=== PATIENT | male | born 1965 | race Caucasian/White ===

== ENCOUNTER 2021-02-10 08:25 | Inpatient (IN) ==
--- NOTE | 2021-01-05 12:59 | PAT Medication Instructions ---
Medication Instructions Date of Service January 05, 2021 Home Medications aspirin 81 mg tablet,delayed release 81 mg PO QAM atorvastatin 40 mg tablet 40 mg PO QAM metformin 500 mg tablet 500 mg PO BID multivitamin 1 tab PO QAM DO NOT take the morning of surgery metformin 500 mg tablet 500 mg PO BID multivitamin 1 tab PO QAM Take morning of surgery With a small sip of water, OTHERWISE NOTHING TO EAT OR DRINK AFTER MIDNIGHT: aspirin 81 mg tablet,delayed release 81 mg PO QAM (unless surgeon directs otherwise) atorvastatin 40 mg tablet 40 mg PO QAM Take evening before surgery metformin 500 mg tablet 500 mg PO BID Other Notes If you have any questions please call us at [phone] or [phone] or [phone] or [phone]
--- NOTE | 2021-01-07 10:58 | Anesthesiology Consultation ---
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 No known Covid infection in the past 90 days. Patient is vaccinated for Covid. No known Covid positive contacts or Covid related symptoms. Preop Covid testing scheduled 01/19/21= will await results. Educated on importance of self quarantining, social distancing and wearing mask in public both for the patient after Covid testing done Teaching & Discussion Pre-Anesthesia Teaching/Discussion Notes: Instructed NPO after midnight before surgery,except medications with 15 cc of water. Medication instructions provided according to the PAT guidelines. History Surgery Operation Date: 01/21/21 09:35 Proposed Procedures p L3-L5 Decompression, L4-L5 Fusion, Spinal Cord Monitoring - Puneet Briggs DO Height/Weight Height: 6 ft 2 in Weight: 115.2 kg Allergies Allergy/AdvReac Type Severity Reaction Status Date / Time bee venom protein (honey bee) Allergy Hives Verified 01/04/21 10:50 Medications Home Medications Medication Instructions Recorded Confirmed Last Taken aspirin 81 mg tablet,delayed 81 mg PO QAM 01/04/21 01/04/21 Unknown release atorvastatin 40 mg tablet 40 mg PO QAM 01/04/21 01/04/21 Unknown metformin 500 mg tablet 500 mg PO BID 01/04/21 01/04/21 Unknown multivitamin 1 tab PO QAM 01/04/21 01/04/21 Unknown Past Medical History Medical History DM type 2 (diabetes mellitus, type 2) NIDDM Glucose controlled per patient - usually 140s fasting glucose 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; s/p surgery + radiation No dysphagia History of TIA (transient ischemic attack) 05/2020 - no residual effects Hyperlipemia Very mild - on statin secondary to TIA Osteoarthritis Sleep apnea Unable to tolerate CPAP Has lost significant amount of weight since initial sleep study Exercise / Class Metabolic Activity II 4-5 Yardwork/Stairs/Walk up hill (one flight of stairs - no chest pain or SOB ) Past Family History Family History Other No family history of adverse response to anesthesia Past Surgical History Surgical History History of cancer surgery parotid cancer History of carpal tunnel surgery of left wrist History of carpal tunnel surgery of right wrist History of colonoscopy History of tonsillectomy History of transesophageal echocardiography (BOO) Past Anesthesia History No Hx of Anesthesia Complications and No Family Hx of Anesthesia Complications History of PONV No Hx of PONV and No Hx of Motion Sickness Social History Smoking Status: Never smoker Do You Dip or Chew Tobacco: No Hx Alcohol Use: Yes Alcohol type: beer alcohol intake frequency: a few times a month Hx Substance Use: No substance use type: does not use Review of Systems Patient denies chest pain, shortness of breath, dyspnea on exertion, reflux, cough, wheezing, palpitations. No hx of seizures, [place]. No hx of blood clots or blood transfusions Physical Exam Vital Signs VITALS BP 101/67 P 81 TEMP 98.7 SP02 98% RESP 16 Constitutional no acute distress ENMT Mouth: no TMJ clicking Thyromental Distance: > or= 3.5 Finger Breadths (4.0) Mallampati Class: III Front top teeth capped Permanent implant right side Molars capped Neck neck extension not limited Respiratory normal respiratory effort; no respiratory distress Auscultation: lungs clear to auscultation bilaterally; no wheezes Cardiovascular Rate/Rhythm: regular rate and regular rhythm Heart Sounds: no murmur Vessels: no carotid bruit Musculoskeletal Spine: no pain with cervical ROM Extremities: extremities normal to inspection Psychiatric Orientation: alert Lab Results Anesthesia Preop Results Results Anesthesia Widget: WBC 9.46 K/uL (4.8-10.8) 01/07/21 Hgb 13.7 g/dL (14.0-18.0) L 01/07/21 Hct 39.8 % (42-52) L 01/07/21 Plt 341 K/uL (130-400) 01/07/21 Na 136 mmol/L (136-145) 01/07/21 K 4.1 mmol/L (3.5-5.1) 01/07/21 Cl 105 mmol/L (98-107) 01/07/21 CO2 29 mmol/L (21-32) 01/07/21 BUN 11 mg/dl (7-18) 01/07/21 Creat 0.72 mg/dl (0.6-1.4) 01/07/21 Glucose Level 194 mg/dl (70-99) H 01/07/21 PT 10.8 Seconds (9.0-12.0) 01/07/21 PTT 26.4 Seconds (21.0-31.0) 01/07/21 INR 1.1 (0.9-1.1) 01/07/21 HA1c 7.6 % (4.5-5.6) H 01/07/21 Urine Color Dark Yellow 01/07/21 Urine Appearance Clear (Clear) 01/07/21 Urine pH 6.5 (4.5-7.5) 01/07/21 Urine Specific [place] 1.030 (1.000-1.030) 01/07/21 Urine Protein Negative (Negative) 01/07/21 Urine Glucose (UA) 3+ (Negative) H 01/07/21 Urine Ketones Trace (Negative) H 01/07/21 Urine Blood Negative (Negative) 01/07/21 Urine Nitrite Negative (Negative) 01/07/21 Urine Bilirubin Negative (Negative) 01/07/21 Urine Urobilinogen Negative (Negative) 01/07/21 Urine Leukocyte Esterase Negative (Negative) 01/07/21 Blood Type O Positive 01/07/21 Antibody Screen NEGATIVE 01/07/21 Testing Electrocardiogram Date: 01/07/21 Findings: + NSR @ (74bpm) Left axis deviation Chest X-Ray Date: 01/07/21 Findings: + NAD Echocardiogram Date: 07/14/20 EF: 50-54% LV Function: normal RWMA: + none Other Findings: + atrial enlargement (Mild left atrial enlargement.) BOO No right to left intra-atrial shunt by saline contrast injection. Aortic atherosclerosis is minimal. Mild MR. Mild TR. Other Testing CTA of neck 05/15/20= No stenosis or occlusion.
[~2021-02-10 08:25] MED LIST: ACETAMINOPHEN 500 MG TAB PO SCH; CeleBREX 200 MG CAP PO SCH; GABAPENTIN 600 MG DOSE PO SCH; LR 15ML/HR IV SCH; ceFAZolin 2000MG 2,000 MG/15 ML SYR IV SCH
[2021-02-10] MEDS ORDERED: HYDROmorphone INJ 2 MG/ML SYR/VIAL ONE (09:17)
[2021-02-10] MEDS ORDERED: MIDAZOLAM HCL 1 MG/ML 2ML VIAL ONE (09:17)
[2021-02-10] MEDS ORDERED: HYDROmorphone INJ 2 MG/ML SYR/VIAL IV PRN (09:38)
[2021-02-10] MEDS ORDERED: ONDANSETRON INJ 2 MG/ML 2 ML VIAL IV PRN ×2 (09:38→13:45)
[2021-02-10] MEDS ORDERED: fentaNYL citrate 100 MCG/2 ML VIAL IV PRN (09:38)
[2021-02-10] MEDS ORDERED: ePHEDrine sulfate 50 MG/ML AMP IV PRN (09:38)
[2021-02-10] MEDS ORDERED: ATROPINE SULFATE 0.1 MG/ML 10ML SYR IV PRN (09:38)
[2021-02-10] MEDS ORDERED: SUGAMMADEX SODIUM 200 MG/2 ML VIAL IV ONE (09:47)
--- NOTE | 2021-02-10 10:05 | History & Physical Bridge Note ---
Date of Service February 10, 2021 History & Physical Bridge Note I have examined the patient, reviewed the History & Physical and in the interval since the performance of the History & Physical I have noted the following changes of clinical significance: no changes noted
--- NOTE | 2021-02-10 10:07 | History & Physical Report ---
Date of Service February 10, 2021 Assessment & Plan (1) Neurogenic claudication due to lumbar spinal stenosis: Plan: L3-L5 decompression, L4-L5 fusion History of Present Illness Chief Complaint: Back and leg pain Primary Care Provider: Sveta Vu PA-C This is a 55-year-old male presents with chronic persistent back and leg pain. Failing since course of nonoperative care is here for surgical invention. Allergies Allergy/AdvReac Type Severity Reaction Status Date / Time bee venom protein (honey bee) Allergy Hives Verified 02/10/21 09:09 Home Medications Medication Instructions Recorded Confirmed Type aspirin 81 mg tablet,delayed 81 mg PO QAM 01/04/21 02/10/21 History release atorvastatin 40 mg tablet 40 mg PO QAM 01/04/21 02/10/21 History metformin 500 mg tablet 500 mg PO BID 01/04/21 02/10/21 History multivitamin 1 tab PO QAM 01/04/21 02/10/21 History Past Med/Surg History Medical History DM type 2 (diabetes mellitus, type 2) NIDDM Glucose controlled per patient - usually 140s fasting glucose 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; s/p surgery + radiation No dysphagia History of TIA (transient ischemic attack) 05/2020 - no residual effects Hyperlipemia Very mild - on statin secondary to TIA Osteoarthritis Sleep apnea Unable to tolerate CPAP Has lost significant amount of weight since initial sleep study Surgical History History of cancer surgery parotid cancer History of carpal tunnel surgery of left wrist History of carpal tunnel surgery of right wrist History of colonoscopy History of tonsillectomy History of transesophageal echocardiography (BOO) Family History Other No family history of adverse response to anesthesia Social History Smoking Status: Never smoker Second Hand Exposure: No; Do You Dip or Chew Tobacco: No; Hx Alcohol Use: Yes Alcohol type: beer Hx Substance Use: No Preferred Language: Kyrgyz Communication Ability: Effective 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
[2021-02-10] MEDS ORDERED: EPINEPHrine INJ 1 MG/ML AMP ONE (10:21)
[2021-02-10] MEDS ORDERED: BUPIVACAINE 0.5 % 5 MG/1 ML MPF 30ML VIAL ONE (10:22)
[2021-02-10] MEDS ORDERED: LIDOCAINE 2% 2 ML VIAL/AMP(20MG/ML) INFIL ONE (11:03)
[2021-02-10] MEDS ORDERED: PROPOFOL IV EMULSION 10 MG/ML 20 ML VIAL IV ONE (11:03)
[2021-02-10] MEDS ORDERED: ONDANSETRON INJ 2 MG/ML 2 ML VIAL ONE (11:03)
[2021-02-10] MEDS ORDERED: DEXAMETHASONE SOD INJ 4 MG/ML VIAL ONE (11:03)
[2021-02-10] MEDS ORDERED: ROCURONIUM BROMIDE 10 MG/ML 5 ML VIAL IV ONE ×2 (11:03→11:07)
[2021-02-10] MEDS ORDERED: FLOSEAL HEMOSTATIC MATRIX 10ML TOP ONE (12:09)
--- NOTE | 2021-02-10 12:29 | Operative Report ---
Post Operative Report Pre & Post Diagnosis Operation Date: 01/21/21 09:35 <No data on this case meets the specified criteria> Operation Date: 02/10/21 10:05 Pre-Op Diagnosis: Intervertebral Disc Disorders with Radiculopathy Post-Op Diagnosis: Intervertebral Disc Disorders with Radiculopathy I identified the patient and participated in the time-out.: Yes Procedure Operation Date: 01/21/21 09:35 <No data on this case meets the specified criteria> Operation Date: 02/10/21 10:05 Actual Procedures #1 lumbar decompression with bilateral medial facetectomies and foraminotomies L3-4 and L4-L5 per #2 posterior spinal fusion L4-5 #3 placed posterior instrumentation L4-5 per #4 interbody fusion L4-5. #5 placement peek cage 14 x 26 mm at L4-5 #6 placement locally harvested morselized autograft in the posterior gutters. #7 placement of I factor combined with vitoss in the interbody space and posterior lateral gutters. Surgeon Puneet Briggs, Clipper Machine Operator Yi Suero Estimated Blood Loss 250 Findings Consistent with Post-Op Diagnosis Specimens None Indications This is a 55-year-old male who presents to the emergent diagnosis after failing course of nonoperative care is here for the above-mentioned procedure. Description of Procedure Patient was met with identified informed consent obtained. Patient was then taken to the operative suite underwent ablation placed in a prone position the [facility] top Coy frame. All bony prominences well-padded eyes inspected to ensure no external pressure placed upon the bed at this point the lumbar spine was prepped and draped in a sterile fashion. Sharp dissection with the assistance of Bovie cautery was performed down to and exposing the lamina and transverse processes of L4-L5 bilaterally. From a caudal cephalad fashion complete laminectomy of L4 partial laminectomy of L3 was performed including bilateral medial facetectomies and foraminotomies addressing all spinal stenosis. Pedicle screws were then placed in L4 and L5 bilaterally with assistance of fluoroscopy and the process remington placed. By way of a transforaminal portion right complete discectomy of L for L5 was performed endplates curetted to subcortical bleeding bone and a 14 x 26 mm peek cage filled with I factor tapped in position. The rods were then locked in final position bilaterally. The transverse processes of L4 and L5 burred to subcortical bleeding bone. I factor combined with vitoss and locally harvested morselized autograft was placed in the posterior gutters. 15 round FERNANDO drain inserted. The incision was then closed with 1 Vicryl fascia 2-0 Vicryl subcutaneously and 4 Monocryl for final skin closure. Steri-Strip sterile dressings placed. Patient will continue PACU stable condition. Please note spinal cord monitoring visualized at the procedure no changes noted. Lastly Yi Suero was present at the surgeon for the patient positioning complex portions of the procedure. I attest to the content of the Intraoperative Record and any orders documented therein. Any exceptions are noted below.
--- NOTE | 2021-02-10 13:36 | Anesthesiology Progress Note ---
Date of Service February 10, 2021 Anesthesia Post Procedure Vital Signs Vital Signs: Temp Pulse Pulse Resp BP Pulse Ox 02/10/21 13:30 72 14 101/65 97 02/10/21 13:15 36.3 C L 75 15 105/69 92 02/10/21 13:05 75 12 110/67 94 02/10/21 12:55 68 12 104/69 99 02/10/21 12:45 71 12 100/66 99 02/10/21 12:35 36.2 C L 73 16 94/63 L 96 02/10/21 09:00 36.8 C 63 20 123/77 97 Transfer of Care Handoff Completed per policy Notes Mental Status: alert / awake / arousable and participated in evaluation Patient Amnestic to Procedure: Yes Nausea / Vomiting: adequately controlled Pain: adequately controlled Airway Patency, RR, SpO2: stable & adequate BP & HR: stable & adequate Hydration State: stable & adequate Anesthetic Complications: no major complications apparent and Pt Satisfied with anesthetic care
--- NOTE | 2021-02-10 13:40 | Fluoroscopy Report ---
FL lumbar spine 2-3V CLINICAL HISTORY: L3-L5 DECOMP, L4-L5 FUSION COMPARISON STUDY: None. FLUOROSCOPY TIME: 20 seconds.. FINDINGS: 2 fluoroscopic spot images of the lower lumbar spine demonstrate posterior decompression an d fusion at L4-5 with pedicle screws, rods, and a disc spacer. The hardware appears intact. IMPRESSION: Fluoroscopy provided for L4-5 posterior decompression and fusion ACT 112: Negative or not required by law. Electronically signed by: Sesar Sierra M.D. 02/10/2021 1:39 PM
[2021-02-10] MEDS ORDERED: DO NOT ADMINISTER PNEUMOCOCCAL VACCINE PRN (13:45)
[2021-02-10] MEDS ORDERED: ACETAMINOPHEN 500 MG TAB PO PRN (13:45)
[2021-02-10] MEDS ORDERED: ACETAMINOPHEN 1,000 MG/100 ML VIAL IV PRN (13:45)
[2021-02-10] MEDS ORDERED: PROMETHAZINE HCL 12.5 MG in SODIUM CHLORIDE 0.9% 50 ML IV PRN (13:45)
[2021-02-10] MEDS ORDERED: METOCLOPRAMIDE HCL INJ 5 MG/ML 2 ML VIAL IV PRN (13:45)
[2021-02-10] MEDS ORDERED: NALOXONE HCL 0.4 MG/1 ML VIAL/CARP IV PRN (13:45)
[2021-02-10] MEDS ORDERED: traMADol HCL 50 MG TABLET PO PRN (13:45)
[2021-02-10] MEDS ORDERED: FAMOTIDINE 20 MG TAB PO PRN (13:45)
[2021-02-10] MEDS ORDERED: diphenhydrAMINE Capsule 25 MG CAP PO PRN (13:45)
[2021-02-10] MEDS ORDERED: LORazepam 0.5 MG/1 ML VIAL IV PRN (13:45)
[2021-02-10] MEDS ORDERED: bisacodyL 10 MG SUPP PR PRN (13:45)
[2021-02-10] MEDS ORDERED: LORazepam 0.5 MG TAB PO PRN (13:45)
[2021-02-10] MEDS ORDERED: ALUMINUM/MAGNESIUM SUSP 30 ML UDC PO PRN (13:45)
[2021-02-10] MEDS ORDERED: SOD PHOSPHATE/SOD BIPHOSPHATE ENEMA 132 ML BTL PR PRN (13:45)
[2021-02-10] MEDS ORDERED: HYDROmorphone INJ 1 MG/ML SYRINGE IV PRN (13:45)
[2021-02-10] MEDS ORDERED: oxyCODONE HCL IR 5 MG TAB (IMMEDIATE RELEASE) PO PRN (13:45)
[2021-02-10] MEDS ORDERED: HYDROmorphone INJ 0.5 MG/0.5 ML SYR IV PRN (13:45)
[2021-02-10] MEDS ORDERED: DO NOT ADMINISTER FLU VACCINE PRN (13:45)
[2021-02-10] MEDS ORDERED: hydrOXYzine HCl 25 MG TAB PO PRN (13:45)
[2021-02-10] MEDS ORDERED: MAGNESIUM HYDROXIDE SUSP 30 ML UDC PO PRN (13:45)
[2021-02-10] MEDS ORDERED: ONDANSETRON 4 MG OD TAB PO PRN (13:45)
[2021-02-10] MEDS: SODIUM CHLORIDE 0.9% 1000ML 1,000 ML IV SCH ×2 (14:12→20:46)
--- NOTE | 2021-02-10 14:26 | Consultation ---
Date of Consultation February 10, 2021 Assessment & Plan (1) S/P spinal surgery: Post op day# 0 S/P L3-L5 decompression and fusion by Dr Briggs EBL#250ml -pain management per ortho -wound management per ortho -PT/OT as appropriate -DVT prophylaxis per ortho -incentive spirometry -monitor H&H for acute blood loss anemia; pre-op Hgb: 13.7 (2) DM type 2 (diabetes mellitus, type 2): A1c: 7.6 on 01/07/2021 -Hold Metformin -Basal, bolus insulin per protocol (3) History of TIA (transient ischemic attack): -Continue aspirin, atorvastatin (4) Sleep apnea: -Intolerant to CPAP DVT Prophylaxis -SCDs per ortho Disposition per primary service Follows with Sveta Vu PA-C in [place] for routine care Pt was seen and care coordinated with Dr Monae. See addendum Thank you for this consultation. We will follow the patient with you during their hospital stay. You can reach a member of the [facility] Team 02/01 via [facility] Supervising Physician Co-Signing Physician Notes Patient is a 55-year-old male with history of diabetes mellitus, hyperlipidemia and other medical problems was seen and examined postop after having lumbar decompression fusion surgery by Dr. Briggs for intervertebral disc disorder with radiculopathy. Patient is doing well postoperatively.. He denies any chest pain, shortness breath, dizziness, nausea, abdominal pain, numbness or tingling in feet. On exam patient is well-built and nourished, no apparent distress, normocephalic atraumatic, EOMI, lungs are clear to auscultation, normal breath sounds, S1-S2, no murmur, no pedal edema, abdomen soft, nontender, normal bowel sounds, Back+ surgical site in dressing,+ drain, alert, awake, oriented, grossly moves all extremities. Patient is consulted for postop medical management. Monitor for postop anemia. Continue incentive spirometer. Bowel regimen to prevent constipation. Wound care, activity, DVT Px as per primary team. Agree with holding Metformin and utilizing insulin therapy while hospitalized for management of diabetes mellitus. I personally reviewed the record. Patient is interviewed and examined at bedside. Patient's care is coordinated with Lenora Veloz PA-C. Please refer to the documentation above for details of patient's presentation and for discussion of other issues. History of Present Illness Requesting Physician: Dr Briggs Reason for Consultation: Post op medical management Attending Physician: Puneet Briggs DO History of Present Illness Pt is 55 y/o M with PMH DM II, HLD, TIA, Left parotid cancer s/p surgery and radiation, sleep apnea seen in medical consultation s/p L3-L5 decompression and fusion today by Dr Briggs. Post op patient reports doing well. Denies current back pain or leg pain, or lower extremity paresthesias. Denies nausea, vomiting, headache, dizziness, chest pain, shortness of breath. Drinking water without difficulty. Denies fever/chills, diaphoresis, diarrhea, constipation, cough, sore throat, choking, rhinorrhea, abdominal pain, extremity edema, rashes, urinary symptoms. Allergies Allergy/AdvReac Type Severity Reaction Status Date / Time bee venom protein (honey bee) Allergy Hives Verified 02/10/21 09:09 Home Medications Medication Instructions Recorded Confirmed Type aspirin 81 mg tablet,delayed 81 mg PO QAM 01/04/21 02/10/21 History release atorvastatin 40 mg tablet 40 mg PO QAM 01/04/21 02/10/21 History metformin 500 mg tablet 500 mg PO BID 01/04/21 02/10/21 History multivitamin 1 tab PO QAM 01/04/21 02/10/21 History Patient History Medical History (Updated 02/10/21 @ 14:49 by Lenora Veloz PA-C) DM type 2 (diabetes mellitus, type 2) NIDDM Glucose controlled per patient - usually 140s fasting glucose 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; s/p surgery + radiation No dysphagia History of TIA (transient ischemic attack) 05/2020 - no residual effects Hyperlipemia Very mild - on statin secondary to TIA Osteoarthritis Sleep apnea Unable to tolerate CPAP Has lost significant amount of weight since initial sleep study Surgical History (Updated 02/10/21 @ 14:49 by Lenora Veloz PA-C) History of cancer surgery parotid cancer History of carpal tunnel surgery of left wrist History of carpal tunnel surgery of right wrist History of colonoscopy History of tonsillectomy History of transesophageal echocardiography (BOO) Family History Other No family history of adverse response to anesthesia Social History Smoking Status: Never smoker Second Hand Exposure: No; Do You Dip or Chew Tobacco: No; Hx Alcohol Use: Yes Alcohol type: beer Hx Substance Use: No Preferred Language: Spanish Communication Ability: Effective [employer]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 Beliefs That Will Affect Care: None Current Living Situation: Spouse Feels Safe at Home: Yes Safety Concerns: Feels Safe At This Time Assistive Devices: None Review of Systems Review of Systems: All systems reviewed & are unremarkable except as noted in HPI & below Physical Exam Physical Exam: General: no distress, WDWN Head: normocephalic, atraumatic Eyes: conjunctiva non-injected, anicteric ENT: normal inspection external ears, nose, mucous membranes moist Neck: supple, trachea midline Lungs: clear, no respiratory distress, no wheezing/rhonchi/rales CV: RRR, no murmur, no pretibial edema Abd: normal BS, soft, non-tender Back: +FERNANDO drain in place with serosanguineous drainage Ext: no cyanosis, no calf tenderness, able to move bilateral feet dorsiflexion and plantar flexion, distal pulses intact, sensation light touch intact Neuro: A&O x 3, no focal deficits noted, normal affect Skin: warm, dry Results & Data ([facility]) Vital Signs (Past 12 Hours) Vital Signs Temp Pulse Pulse Resp BP Pulse Ox 02/10/21 14:13 68 17 105/65 97 02/10/21 13:47 36.4 C L 70 16 113/71 97 02/10/21 13:30 72 14 101/65 97 02/10/21 13:15 36.3 C L 75 15 105/69 92 02/10/21 13:05 75 12 110/67 94 02/10/21 12:55 68 12 104/69 99 02/10/21 12:45 71 12 100/66 99 02/10/21 12:35 36.2 C L 73 16 94/63 L 96 02/10/21 09:00 36.8 C 63 20 123/77 97
[2021-02-10] MEDS ORDERED: GLUCOSE 10 TABS/TUBE PO PRN (14:42)
[2021-02-10] MEDS ORDERED: GLUCAGON FOR INJ 1 MG VIAL SQ PRN (14:42)
[2021-02-10] MEDS ORDERED: DEXTROSE 50% 50 ML SYRINGE IV PRN (14:42)
[2021-02-10] MEDS ORDERED: GLUCOSE 40% GEL 15 GM TUBE PO PRN (14:42)
[2021-02-10] MEDS ORDERED: CARBOHYDRATES FOR HYPOGLYCEMIA PO PRN (14:42)
[2021-02-10] MEDS: INSULIN ASPART 100 UNITS/ML 3 ML PEN SC SCH ×2 (16:59→20:49)
[2021-02-10] MEDS: ceFAZolin 2000MG 2,000 MG/15 ML SYR IV SCH (18:00)
[2021-02-10] MEDS: DOCUSATE SODIUM/SENNA 50/8.6MG TAB PO SCH (20:46)
[2021-02-10] MEDS: INSULIN GLARGINE SOLOSTAR 100 UNITS/ML 3 ML PEN SC SCH (20:49)
[2021-02-11] MEDS: ceFAZolin 2000MG 2,000 MG/15 ML SYR IV SCH (01:27)
[2021-02-11] MEDS: SODIUM CHLORIDE 0.9% 1000ML 1,000 ML IV SCH ×2 (03:01→17:56)
[2021-02-11] MEDS: POLYETHYLENE (MIRALAX) 17 GM PACK PO SCH ×4 (05:24→21:47)
[2021-02-11 06:33] LABS: Eosinophils # (auto) 0.01 K/uL (0-0.5); Eosinophils % (auto) 0.1 %; Hemoglobin 12.6 g/dL (14.0-18.0); Immature Granulocytes # (auto) 0.05 K/uL (0.00-0.02); Immature Granulocytes % (auto) 0.3 %; Lymphocytes # (auto) 1.55 K/uL (1.2-3.4); Lymphocytes % (auto) 8.5 %; Mean Corpuscular Hemoglobin 31.1 pg (25-34); Mean Corpuscular Volume 88.9 fL (80-100); Mean Platelet Volume 10.8 fL (7.4-10.4); Monocytes # (auto) 0.85 K/uL (0.11-0.59); Monocytes % (auto) 4.7 %; Neutrophils # (auto) 15.76 K/uL (1.4-6.5); Neutrophils % (auto) 86.4 %; Platelet Count 323 K/uL (130-400); RDW Coefficient of Variation 12.8 % (11.5-14.5); RDW Standard Deviation 40.8 fL (36.4-46.3); Red Blood Count 4.05 M/uL (4.7-6.1); White Blood Count 18.22 K/uL (4.8-10.8)
[2021-02-11 06:58] LABS: BUN Creatinine Ratio 16.8 (10-20); Calcium 8.6 mg/dl (8.5-10.1); Creatinine Clr Calc Pharmacy 156.1 ml/min; Est GFR (African American) 121.4 ml/min; Est GFR (Non-African American) 104.8 ml/min; Magnesium 1.8 mg/dl (1.8-2.4); Potassium 3.8 mmol/L (3.5-5.1)
--- NOTE | 2021-02-11 08:30 | Orthopedic Progress Note ---
Date of Service February 11, 2021 Assessment & Plan (1) Neurogenic claudication due to lumbar spinal stenosis: Plan: This time initiate physical therapy monitor his FERNANDO output hopefully discharge home the next few days. Admission and Anticipated Discharge Date Admission Date: February 10, 2021 Subjective Patient's back pain is controlled leg symptoms markedly improved Physical Exam Physical Exam: Patient appears comfortable. Is excellent strength testing. Results & Data ([facility]) Vital Signs (Past 12 Hours) Vital Signs Temp Pulse Resp BP Pulse Ox 02/11/21 07:00 36.6 C 66 20 108/63 97 02/11/21 04:17 36.4 C L 74 16 113/52 L 93 02/10/21 23:28 37.1 C 17 96/54 L 92 02/10/21 20:38 36.6 C 77 16 114/74 94
[2021-02-11] MEDS: ATORVASTATIN 40 MG TAB PO SCH (08:45)
[2021-02-11] MEDS: MULTIVITAMIN TAB PO SCH (08:45)
[2021-02-11] MEDS: ASPIRIN 81 MG ECTAB PO SCH (08:45)
[2021-02-11] MEDS: INSULIN GLARGINE SOLOSTAR 100 UNITS/ML 3 ML PEN SC SCH ×2 (08:46→20:50)
[2021-02-11] MEDS: INSULIN ASPART 100 UNITS/ML 3 ML PEN SC SCH ×4 (08:48→20:46)
--- NOTE | 2021-02-11 09:06 | Hospitalist Progress Note ---
Date of Service February 11, 2021 Assessment & Plan (1) S/P spinal surgery: Plan: Post op day# 1 S/P L3-L5 decompression and fusion by Dr Briggs -pain management per ortho -wound management per ortho -PT/OT as appropriate -DVT prophylaxis per ortho -incentive spirometry -monitor H&H for acute blood loss anemia; pre-op Hgb: 13.7 (Hgb mildly down at 12.6 today) (2) DM type 2 (diabetes mellitus, type 2): Plan: A1c: 7.6 on 01/07/2021 -Hold Metformin -Basal, bolus insulin per protocol (3) History of TIA (transient ischemic attack): Plan: -Continue aspirin, atorvastatin (4) Sleep apnea: Plan: -Intolerant to CPAP DVT Prophylaxis -SCDs per ortho Disposition per primary service Follows with Sveta Vu PA-C in [place], [place] for routine care Thank you for this consultation. We will follow the patient with you during their hospital stay. You can reach a [facility] via [employer] Admission and Anticipated Discharge Date Admission Date: February 10, 2021 Subjective Patient seen in follow-up after his back surgery with Dr. Briggs Currently patient is walking around in his room without difficulty No acute events overnight Denies any chest pain, shortness of breath, fevers or chills also denies any abdominal pain, nausea or vomiting He is urinating, but not passing gas or having bowel movements, he is eating okay Review of Systems Review of Systems: All systems reviewed & are unremarkable except as noted in Subjective Physical Exam Physical Exam: General: no distress, WDWN Head: normocephalic, atraumatic Eyes: conjunctiva non-injected, anicteric ENT: normal inspection external ears, nose, mucous membranes moist Neck: supple, trachea midline Lungs: clear, no respiratory distress, no wheezing/rhonchi/rales CV: RRR, no murmur, no pretibial edema Abd: normal BS, soft, non-tender Back: +FERNANDO drain in place with serosanguineous drainage Ext: no cyanosis, no calf tenderness, able to move bilateral feet dorsiflexion and plantar flexion, distal pulses intact, sensation light touch intact Neuro: A&O x 3, no focal deficits noted, normal affect Skin: warm, dry Results & Data Results & Data ([facility]) Vital Signs (Past 12 Hours) Vital Signs Temp Pulse Resp BP Pulse Ox 02/11/21 07:00 36.6 C 66 20 108/63 97 02/11/21 04:17 36.4 C L 74 16 113/52 L 93 02/10/21 23:28 37.1 C 17 96/54 L 92 Laboratory Results 02/11/21 02/11/21 02/11/21 Range/Units 08:18 05:32 05:32 WBC 18.22 H (4.8-10.8) K/uL RBC 4.05 L (4.7-6.1) M/uL Hgb 12.6 L (14.0-18.0) g/dL Hct 36.0 L (42-52) % MCV 88.9 (80-100) fL MCH 31.1 (25-34) pg MCHC 35.0 (32-36) g/dL RDW Std Deviation 40.8 (36.4-46.3) fL RDW Coeff of Trish 12.8 (11.5-14.5) % Plt Count 323 (130-400) K/uL MPV 10.8 H (7.4-10.4) fL Immature Gran % (Auto) 0.3 % Neut % (Auto) 86.4 % Lymph % (Auto) 8.5 % Bandera % (Auto) 4.7 % Eos % (Auto) 0.1 % Baso % (Auto) 0.0 % Neut # (Auto) 15.76 H (1.4-6.5) K/uL Lymph # (Auto) 1.55 (1.2-3.4) K/uL Band[place] # (Auto) 0.85 H (0.11-0.59) K/uL Eos # (Auto) 0.01 (0-0.5) K/uL Baso # (Auto) 0.00 (0-0.2) K/uL Immature Gran # (Auto) 0.05 H (0.00-0.02) K/uL Sodium 139 (136-145) mmol/L Potassium 3.8 (3.5-5.1) mmol/L Chloride 107 (98-107) mmol/L Carbon Dioxide 26 (21-32) mmol/L Anion Gap 6.0 (3-11) BUN 12 (7-18) mg/dl Creatinine 0.70 (0.6-1.4) mg/dl Est Cr Clr Drug Dosing 156.1 ml/min Est GFR ( Amer) 121.4 ml/min Est GFR (Non-Af Amer) 104.8 ml/min BUN/Creatinine Ratio 16.8 (10-20) Glucose 135 H (70-99) mg/dl POC Glucose 165 H (70-99) mg/dl Calcium 8.6 (8.5-10.1) mg/dl Magnesium 1.8 (1.8-2.4) mg/dl SARS-CoV-2 (PCR) (Negative) Blood Type Antibody Screen Crossmatch 02/10/21 02/10/21 02/10/21 Range/Units 20:35 15:27 12:38 WBC (4.8-10.8) K/uL RBC (4.7-6.1) M/uL Hgb (14.0-18.0) g/dL Hct (42-52) % MCV (80-100) fL MCH (25-34) pg MCHC (32-36) g/dL RDW Std Deviation (36.4-46.3) fL RDW Coeff of Trish (11.5-14.5) % Plt Count (130-400) K/uL MPV (7.4-10.4) fL Immature Gran % (Auto) % Neut % (Auto) % Lymph % (Auto) % Band[place] % (Auto) % Eos % (Auto) % Baso % (Auto) % Neut # (Auto) (1.4-6.5) K/uL Lymph # (Auto) (1.2-3.4) K/uL Band[place] # (Auto) (0.11-0.59) K/uL Eos # (Auto) (0-0.5) K/uL Baso # (Auto) (0-0.2) K/uL Immature Gran # (Auto) (0.00-0.02) K/uL Sodium (136-145) mmol/L Potassium (3.5-5.1) mmol/L Chloride (98-107) mmol/L Carbon Dioxide (21-32) mmol/L Anion Gap (3-11) BUN (7-18) mg/dl Creatinine (0.6-1.4) mg/dl Est Cr Clr Drug Dosing ml/min Est GFR ( Amer) ml/min Est GFR (Non-Af Amer) ml/min BUN/Creatinine Ratio (10-20) Glucose (70-99) mg/dl POC Glucose 166 H 160 H 136 H (70-99) mg/dl Calcium (8.5-10.1) mg/dl Magnesium (1.8-2.4) mg/dl SARS-CoV-2 (PCR) (Negative) Blood Type Antibody Screen Crossmatch 02/10/21 02/10/21 02/10/21 Range/Units 08:54 08:51 08:49 WBC (4.8-10.8) K/uL RBC (4.7-6.1) M/uL Hgb (14.0-18.0) g/dL Hct (42-52) % MCV (80-100) fL MCH (25-34) pg MCHC (32-36) g/dL RDW Std Deviation (36.4-46.3) fL RDW Coeff of Trish (11.5-14.5) % Plt Count (130-400) K/uL MPV (7.4-10.4) fL Immature Gran % (Auto) % Neut % (Auto) % Lymph % (Auto) % Band[place] % (Auto) % Eos % (Auto) % Baso % (Auto) % Neut # (Auto) (1.4-6.5) K/uL Lymph # (Auto) (1.2-3.4) K/uL Band[place] # (Auto) (0.11-0.59) K/uL Eos # (Auto) (0-0.5) K/uL Baso # (Auto) (0-0.2) K/uL Immature Gran # (Auto) (0.00-0.02) K/uL Sodium (136-145) mmol/L Potassium (3.5-5.1) mmol/L Chloride (98-107) mmol/L Carbon Dioxide (21-32) mmol/L Anion Gap (3-11) BUN (7-18) mg/dl Creatinine (0.6-1.4) mg/dl Est Cr Clr Drug Dosing ml/min Est GFR ( Amer) ml/min Est GFR (Non-Af Amer) ml/min BUN/Creatinine Ratio (10-20) Glucose (70-99) mg/dl POC Glucose 123 H (70-99) mg/dl Calcium (8.5-10.1) mg/dl Magnesium (1.8-2.4) mg/dl SARS-CoV-2 (PCR) NEGATIVE (Negative) Blood Type O Positive Antibody Screen NEGATIVE Crossmatch See Detail Medications Administered Current Inpatient Medications Acetaminophen (Acetaminophen 500 Mg Tab) 1,000 mg PO Q8H PRN PRN Reason: MILD Pain Scale 1,2,3 & Pre PT Stop: 03/12/21 13:44 Al Hydrox/Mg Hydrox/Simethicone (Aluminum/Magnesium Susp 30 Ml Udc) 30 ml PO Q6H PRN PRN Reason: Dyspepsia Stop: 03/12/21 13:44 Aspirin (Aspirin 81 Mg Ectab) [address] [facility] Stop: 03/13/21 08:59 Last Admin: 02/11/21 08:45 Dose: 81 mg Documented by: Atorvastatin Calcium (Atorvastatin 40 Mg Tab) [address] [facility] Stop: 03/13/21 08:59 Last Admin: 02/11/21 08:45 Dose: 40 mg Documented by: Bisacodyl (Bisacodyl 10 Mg Supp) 10 mg FL DAILY PRN PRN Reason: Constipation Stop: 03/12/21 13:44 Dextrose (Dextrose 50% 50 Ml Syringe) 25 - 50 ml IV UD PRN; Protocol PRN Reason: Hypoglycemia Protocol Stop: 03/12/21 14:41 Diphenhydramine HCl (Diphenhydramine Capsule 25 Mg Cap) 25 mg PO Q6H PRN PRN Reason: Allergic Rhinitis/Insomnia Stop: 03/12/21 13:44 Famotidine (Famotidine 20 Mg Tab) 20 mg PO Q12H PRN PRN Reason: Dyspepsia Stop: 03/12/21 13:44 Glucagon (Glucagon For Inj 1 Mg Vial) 1 mg SQ UD PRN; Protocol PRN Reason: Hypoglycemia Protocol Stop: 03/12/21 14:41 Glucose (Glucose 10 Tabs/Tube) 4 - 8 tabs PO UD PRN; Protocol PRN Reason: Hypoglycemia Protocol Stop: 03/12/21 14:41 Glucose (Glucose 40% Gel 15 Gm Tube) 15 - 30 gm PO UD PRN; Protocol PRN Reason: Hypoglycemia Protocol Stop: 03/12/21 14:41 Hydromorphone HCl (Hydromorphone Inj 0.5 Mg/0.5 Ml Syr) 0.5 mg IV Q3H PRN PRN Reason: MODERATE Pain (Scale 4,5,6) & Pre PT Stop: 02/24/21 13:44 Hydromorphone HCl (Hydromorphone Inj 1 Mg/Ml Syringe) 1 mg IV Q3H PRN PRN Reason: SEVERE Pain (Scale 7,8,9,10) Stop: 02/24/21 13:44 Hydroxyzine HCl (Hydroxyzine Hcl 25 Mg Tab) 25 mg PO Q8H PRN PRN Reason: Anxiety Stop: 03/12/21 13:44 Sodium Chloride (Nss 1000ml) 1,000 mls @ 150 mls/hr IV .Q6H40M [facility] Stop: 03/12/21 13:44 Last Infusion: 02/11/21 08:46 Dose: Infused Documented by: Promethazine HCl 12.5 mg/ (Sodium Chloride) 50.5 mls @ 202 mls/hr IV Q6H PRN PRN Reason: Nausea &/or Vomiting Stop: 03/12/21 13:44 Acetaminophen (Ofirmev) 1,000 mg in 100 mls @ 400 mls/hr IV Q8H PRN PRN Reason: Pain Rating 1-3 & Pre PT Stop: 02/13/21 13:44 Lorazepam (Ativan) 0.5 mg in 1 mls @ 1 mls/min IV Q8H PRN PRN Reason: Sedation/Anxiety Stop: 03/12/21 13:44 Dexamethasone 8 mg/ Syringe 2 mls @ 1 mls/min IV DAILY [facility] Stop: 03/14/21 08:59 Influenza Virus Vaccine Quadrival (Do Not Administer Flu Vaccine) 1 ea N/A PRN PRN PRN Reason: Notification Stop: 03/12/21 13:44 Insulin Aspart (Insulin Aspart 100 Units/Ml 3 Ml Pen) 0 units SC ACHS [facility] Stop: 03/12/21 16:29 Last Admin: 02/11/21 08:48 Dose: 9 units Documented by: Insulin Glargine (Insulin Glargine Solostar 100 Units/Ml 3 Ml Pen) 0 - 10 units SC BID [facility] Stop: 03/12/21 20:59 Last Admin: 02/11/21 08:46 Dose: 5 units Documented by: Lorazepam (Lorazepam 0.5 Mg Tab) 0.5 mg PO Q8H PRN PRN Reason: Sedation/Anxiety Stop: 03/12/21 13:44 Magnesium Hydroxide (Magnesium Hydroxide Susp 30 Ml Udc) 30 ml PO Q24H PRN PRN Reason: Constipation Stop: 03/12/21 13:44 Metoclopramide HCl (Metoclopramide Hcl Inj 5 Mg/Ml 2 Ml Vial) 10 mg IV Q6H PRN PRN Reason: Nausea &/or Vomiting Stop: 03/12/21 13:44 Miscellaneous (Carbohydrates For Hypoglycemia ) 15 - 30 gm PO UD PRN PRN Reason: Hypoglycemia Protocol Stop: 03/12/21 14:41 Multivitamins (Multivitamin Tab) 1 tab PO QAM [facility] Stop: 03/13/21 08:59 Last Admin: 02/11/21 08:45 Dose: 1 tab Documented by: Naloxone HCl (Naloxone Hcl 0.4 Mg/1 Ml Vial/Carp) 0.1 mg IV Q5M PRN PRN Reason: Oversedation/Resp depression Stop: 03/12/21 13:44 Ondansetron HCl (Ondansetron Inj 2 Mg/Ml 2 Ml Vial) 4 mg IV Q6H PRN PRN Reason: Nausea &/or Vomiting Stop: 03/12/21 13:44 Ondansetron HCl (Ondansetron 4 Mg Od Tab) 4 mg PO Q6H PRN PRN Reason: Nausea Stop: 03/12/21 13:44 Oxycodone HCl (Oxycodone Hcl Ir 5 Mg Tab (Immediate Release)) 5 - 10 mg PO Q4H PRN PRN Reason: Pain & Pre PT Stop: 02/24/21 13:44 Pneumococcal Polyvalent Vaccine (Do Not Administer Pneumococcal Vaccine) 1 ea N/A PRN PRN PRN Reason: Notification Stop: 03/12/21 13:44 Polyethylene Glycol (Polyethylene (Miralax) 17 Gm Pack) 17 gm PO Q6 [facility] Stop: 03/13/21 05:59 Last Admin: 02/11/21 05:24 Dose: 17 gm Documented by: Senna/Docusate Sodium (Docusate Sodium/Senna 50/8.6mg Tab) 2 tab PO HS [facility] Stop: 03/12/21 20:59 Last Admin: 02/10/21 20:46 Dose: 2 tab Documented by: Sodium Biphosphate/Sodium Phosphate (Sod Phosphate/Sod Biphosphate Enema 132 Ml Btl) 132 ml FL ONE PRN PRN Reason: Constipation Stop: 03/12/21 13:44 Tramadol HCl (Tramadol Hcl 50 Mg Tablet) 50 - 100 mg PO Q4H PRN PRN Reason: Moderate-Severe pain & Pre PT Stop: 03/12/21 13:44
[2021-02-11] MEDS: DOCUSATE SODIUM/SENNA 50/8.6MG TAB PO SCH (19:15)
[2021-02-12] MEDS: POLYETHYLENE (MIRALAX) 17 GM PACK PO SCH ×2 (03:24→12:44)
[2021-02-12 06:36] LABS: Hematocrit (blood only) 36.7 % (42-52); Hemoglobin 12.2 g/dL (14.0-18.0); Mean Corpuscular Hemoglobin 29.7 pg (25-34); Mean Corpuscular Hgb Conc 33.2 g/dL (32-36); Mean Corpuscular Volume 89.3 fL (80-100); Mean Platelet Volume 10.3 fL (7.4-10.4); Platelet Count 288 K/uL (130-400); RDW Coefficient of Variation 13.2 % (11.5-14.5); RDW Standard Deviation 42.4 fL (36.4-46.3); Red Blood Count 4.11 M/uL (4.7-6.1); White Blood Count 12.11 K/uL (4.8-10.8)
[2021-02-12 07:04] LABS: BUN Creatinine Ratio 17.1 (10-20); Calcium 8.9 mg/dl (8.5-10.1); Creatinine Clr Calc Pharmacy 151.8 ml/min; Est GFR (Non-African American) 103.6 ml/min; Potassium 4.2 mmol/L (3.5-5.1)
--- NOTE | 2021-02-12 08:01 | Hospitalist Progress Note ---
Date of Service February 12, 2021 Assessment & Plan (1) S/P spinal surgery: Plan: Post op day# 2 S/P L3-L5 decompression and fusion by Dr Briggs -pain management per ortho -wound management per ortho -PT/OT as appropriate -DVT prophylaxis per ortho -incentive spirometry -monitor H&H for acute blood loss anemia; pre-op Hgb: 13.7 (Hgb mildly down at 12.2 today, stable from yesterday) (2) DM type 2 (diabetes mellitus, type 2): Plan: A1c: 7.6 on 01/07/2021 -Hold Metformin -Basal, bolus insulin per protocol (3) History of TIA (transient ischemic attack): Plan: -Continue aspirin, atorvastatin (4) Sleep apnea: Plan: -Intolerant to CPAP DVT Prophylaxis -SCDs per ortho Disposition per primary service Follows with Sveta Vu PA-C in [place], [place] for routine care Thank you for this consultation. We will follow the patient with you during their hospital stay. You can reach a member of the [facility]ist Team 02/01 via [employer] Admission and Anticipated Discharge Date Admission Date: February 10, 2021 Subjective Patient seen in follow-up after his back surgery with Dr. Briggs Currently patient is sitting up in chair No acute events overnight Denies any chest pain, shortness of breath, fevers or chills also denies any abdominal pain, nausea or vomiting He is urinating, and passing gas No significant pain reported, no numbness or tingling Review of Systems Review of Systems: All systems reviewed & are unremarkable except as noted in Subjective Physical Exam Physical Exam: General: no distress, WDWN Head: normocephalic, atraumatic Eyes: conjunctiva non-injected, anicteric ENT: normal inspection external ears, nose, mucous membranes moist Neck: supple, trachea midline Lungs: clear, no respiratory distress, no wheezing/rhonchi/rales CV: RRR, no murmur, no pretibial edema Abd: normal BS, soft, non-tender Back: +FERNANDO drain in place with serosanguineous drainage Ext: no cyanosis, no calf tenderness, able to move bilateral feet dorsiflexion and plantar flexion, distal pulses intact, sensation light touch intact Neuro: A&O x 3, no focal deficits noted, normal affect Skin: warm, dry Results & Data Results & Data ([facility]) Vital Signs (Past 12 Hours) Vital Signs Temp Pulse Resp BP Pulse Ox 02/12/21 07:16 37.2 C 71 17 111/64 98 02/11/21 23:20 36.7 C 17 97/56 L 96 Laboratory Results 02/12/21 02/12/21 02/11/21 Range/Units 05:47 05:47 20:43 WBC 12.11 H (4.8-10.8) K/uL RBC 4.11 L (4.7-6.1) M/uL Hgb 12.2 L (14.0-18.0) g/dL Hct 36.7 L (42-52) % MCV 89.3 (80-100) fL MCH 29.7 (25-34) pg MCHC 33.2 (32-36) g/dL RDW Std Deviation 42.4 (36.4-46.3) fL RDW Coeff of Trish 13.2 (11.5-14.5) % Plt Count 288 (130-400) K/uL MPV 10.3 (7.4-10.4) fL Sodium 140 (136-145) mmol/L Potassium 4.2 (3.5-5.1) mmol/L Chloride 107 (98-107) mmol/L Carbon Dioxide 30 (21-32) mmol/L Anion Gap 3.0 (3-11) BUN 12 (7-18) mg/dl Creatinine 0.72 (0.6-1.4) mg/dl Est Cr Clr Drug Dosing 151.8 ml/min Est GFR ( Amer) 120.0 ml/min Est GFR (Non-Af Amer) 103.6 ml/min BUN/Creatinine Ratio 17.1 (10-20) Glucose 115 H (70-99) mg/dl POC Glucose 128 H (70-99) mg/dl Calcium 8.9 (8.5-10.1) mg/dl Crossmatch 02/11/21 02/11/21 02/11/21 Range/Units 17:04 12:22 08:18 WBC (4.8-10.8) K/uL RBC (4.7-6.1) M/uL Hgb (14.0-18.0) g/dL Hct (42-52) % MCV (80-100) fL MCH (25-34) pg MCHC (32-36) g/dL RDW Std Deviation (36.4-46.3) fL RDW Coeff of Trish (11.5-14.5) % Plt Count (130-400) K/uL MPV (7.4-10.4) fL Sodium (136-145) mmol/L Potassium (3.5-5.1) mmol/L Chloride (98-107) mmol/L Carbon Dioxide (21-32) mmol/L Anion Gap (3-11) BUN (7-18) mg/dl Creatinine (0.6-1.4) mg/dl Est Cr Clr Drug Dosing ml/min Est GFR ( Amer) ml/min Est GFR (Non-Af Amer) ml/min BUN/Creatinine Ratio (10-20) Glucose (70-99) mg/dl POC Glucose 135 H 142 H 165 H (70-99) mg/dl Calcium (8.5-10.1) mg/dl Crossmatch 02/10/21 Range/Units 08:49 WBC (4.8-10.8) K/uL RBC (4.7-6.1) M/uL Hgb (14.0-18.0) g/dL Hct (42-52) % MCV (80-100) fL MCH (25-34) pg MCHC (32-36) g/dL RDW Std Deviation (36.4-46.3) fL RDW Coeff of Trish (11.5-14.5) % Plt Count (130-400) K/uL MPV (7.4-10.4) fL Sodium (136-145) mmol/L Potassium (3.5-5.1) mmol/L Chloride (98-107) mmol/L Carbon Dioxide (21-32) mmol/L Anion Gap (3-11) BUN (7-18) mg/dl Creatinine (0.6-1.4) mg/dl Est Cr Clr Drug Dosing ml/min Est GFR ( Amer) ml/min Est GFR (Non-Af Amer) ml/min BUN/Creatinine Ratio (10-20) Glucose (70-99) mg/dl POC Glucose (70-99) mg/dl Calcium (8.5-10.1) mg/dl Crossmatch See Detail Medications Administered Current Inpatient Medications Acetaminophen (Acetaminophen 500 Mg Tab) 1,000 mg PO Q8H PRN PRN Reason: MILD Pain Scale 1,2,3 & Pre PT Stop: 03/12/21 13:44 Al Hydrox/Mg Hydrox/Simethicone (Aluminum/Magnesium Susp 30 Ml Udc) 30 ml PO Q6H PRN PRN Reason: Dyspepsia Stop: 03/12/21 13:44 Aspirin (Aspirin 81 Mg Ectab) 81 mg PO QAM [facility] Stop: 03/13/21 08:59 Last Admin: 02/11/21 08:45 Dose: 81 mg Documented by: Atorvastatin Calcium (Atorvastatin 40 Mg Tab) 40 mg PO QAM [facility] Stop: 03/13/21 08:59 Last Admin: 02/11/21 08:45 Dose: 40 mg Documented by: Bisacodyl (Bisacodyl 10 Mg Supp) 10 mg DC DAILY PRN PRN Reason: Constipation Stop: 03/12/21 13:44 Dextrose (Dextrose 50% 50 Ml Syringe) 25 - 50 ml IV UD PRN; Protocol PRN Reason: Hypoglycemia Protocol Stop: 03/12/21 14:41 Diphenhydramine HCl (Diphenhydramine Capsule 25 Mg Cap) 25 mg PO Q6H PRN PRN Reason: Allergic Rhinitis/Insomnia Stop: 03/12/21 13:44 Famotidine (Famotidine 20 Mg Tab) 20 mg PO Q12H PRN PRN Reason: Dyspepsia Stop: 03/12/21 13:44 Glucagon (Glucagon For Inj 1 Mg Vial) 1 mg SQ UD PRN; Protocol PRN Reason: Hypoglycemia Protocol Stop: 03/12/21 14:41 Glucose (Glucose 10 Tabs/Tube) 4 - 8 tabs PO UD PRN; Protocol PRN Reason: Hypoglycemia Protocol Stop: 03/12/21 14:41 Glucose (Glucose 40% Gel 15 Gm Tube) 15 - 30 gm PO UD PRN; Protocol PRN Reason: Hypoglycemia Protocol Stop: 03/12/21 14:41 Hydromorphone HCl (Hydromorphone Inj 0.5 Mg/0.5 Ml Syr) 0.5 mg IV Q3H PRN PRN Reason: MODERATE Pain (Scale 4,5,6) & Pre PT Stop: 02/24/21 13:44 Hydromorphone HCl (Hydromorphone Inj 1 Mg/Ml Syringe) 1 mg IV Q3H PRN PRN Reason: SEVERE Pain (Scale 7,8,9,10) Stop: 02/24/21 13:44 Hydroxyzine HCl (Hydroxyzine Hcl 25 Mg Tab) 25 mg PO Q8H PRN PRN Reason: Anxiety Stop: 03/12/21 13:44 Promethazine HCl 12.5 mg/ (Sodium Chloride) 50.5 mls @ 202 mls/hr IV Q6H PRN PRN Reason: Nausea &/or Vomiting Stop: 03/12/21 13:44 Acetaminophen (Ofirmev) 1,000 mg in 100 mls @ 400 mls/hr IV Q8H PRN PRN Reason: Pain Rating 1-3 & Pre PT Stop: 02/13/21 13:44 Lorazepam (Ativan) 0.5 mg in 1 mls @ 1 mls/min IV Q8H PRN PRN Reason: Sedation/Anxiety Stop: 03/12/21 13:44 Dexamethasone 8 mg/ Syringe 2 mls @ 1 mls/min IV DAILY [facility] Stop: 03/14/21 08:59 Influenza Virus Vaccine Quadrival (Do Not Administer Flu Vaccine) 1 ea N/A PRN PRN PRN Reason: Notification Stop: 03/12/21 13:44 Insulin Aspart (Insulin Aspart 100 Units/Ml 3 Ml Pen) 0 units SC ACHS [facility] Stop: 03/12/21 16:29 Last Admin: 02/11/21 20:46 Dose: Not Given Documented by: Insulin Glargine (Insulin Glargine Solostar 100 Units/Ml 3 Ml Pen) 0 - 10 units SC BID [facility] Stop: 03/12/21 20:59 Last Admin: 02/11/21 20:50 Dose: 5 units Documented by: Lorazepam (Lorazepam 0.5 Mg Tab) 0.5 mg PO Q8H PRN PRN Reason: Sedation/Anxiety Stop: 03/12/21 13:44 Magnesium Hydroxide (Magnesium Hydroxide Susp 30 Ml Udc) 30 ml PO Q24H PRN PRN Reason: Constipation Stop: 03/12/21 13:44 Metoclopramide HCl (Metoclopramide Hcl Inj 5 Mg/Ml 2 Ml Vial) 10 mg IV Q6H PRN PRN Reason: Nausea &/or Vomiting Stop: 03/12/21 13:44 Miscellaneous (Carbohydrates For Hypoglycemia ) 15 - 30 gm PO UD PRN PRN Reason: Hypoglycemia Protocol Stop: 03/12/21 14:41 Multivitamins (Multivitamin Tab) 1 tab PO QAM [facility] Stop: 03/13/21 08:59 Last Admin: 02/11/21 08:45 Dose: 1 tab Documented by: Naloxone HCl (Naloxone Hcl 0.4 Mg/1 Ml Vial/Carp) 0.1 mg IV Q5M PRN PRN Reason: Oversedation/Resp depression Stop: 03/12/21 13:44 Ondansetron HCl (Ondansetron Inj 2 Mg/Ml 2 Ml Vial) 4 mg IV Q6H PRN PRN Reason: Nausea &/or Vomiting Stop: 03/12/21 13:44 Ondansetron HCl (Ondansetron 4 Mg Od Tab) 4 mg PO Q6H PRN PRN Reason: Nausea Stop: 03/12/21 13:44 Oxycodone HCl (Oxycodone Hcl Ir 5 Mg Tab (Immediate Release)) 5 - 10 mg PO Q4H PRN PRN Reason: Pain & Pre PT Stop: 02/24/21 13:44 Pneumococcal Polyvalent Vaccine (Do Not Administer Pneumococcal Vaccine) 1 ea N/A PRN PRN PRN Reason: Notification Stop: 03/12/21 13:44 Polyethylene Glycol (Polyethylene (Miralax) 17 Gm Pack) 17 gm PO Q6 [facility] Stop: 03/13/21 05:59 Last Admin: 02/12/21 03:24 Dose: Not Given Documented by: Senna/Docusate Sodium (Docusate Sodium/Senna 50/8.6mg Tab) 2 tab PO HS [facility] Stop: 03/12/21 20:59 Last Admin: 02/11/21 19:15 Dose: Not Given Documented by: Sodium Biphosphate/Sodium Phosphate (Sod Phosphate/Sod Biphosphate Enema 132 Ml Btl) 132 ml DC ONE PRN PRN Reason: Constipation Stop: 03/12/21 13:44 Tramadol HCl (Tramadol Hcl 50 Mg Tablet) 50 - 100 mg PO Q4H PRN PRN Reason: Moderate-Severe pain & Pre PT Stop: 03/12/21 13:44
[2021-02-12] MEDS ORDERED: dexAMETHasone 8 MG in SYRINGE 0 ML IV SCH (09:00)
[2021-02-12] MEDS: INSULIN ASPART 100 UNITS/ML 3 ML PEN SC SCH ×2 (09:03→12:44)
[2021-02-12] MEDS: INSULIN GLARGINE SOLOSTAR 100 UNITS/ML 3 ML PEN SC SCH (09:05)
[2021-02-12] MEDS: ATORVASTATIN 40 MG TAB PO SCH (09:06)
[2021-02-12] MEDS: ASPIRIN 81 MG ECTAB PO SCH (09:06)
[2021-02-12] MEDS: MULTIVITAMIN TAB PO SCH (09:07)
--- NOTE | 2021-02-12 09:09 | Discharge Summary ---
Date of Service February 12, 2021 Admission HPI Per Admitting Provider This is a 55-year-old male presents with chronic persistent back and leg pain. Failing since course of nonoperative care is here for surgical invention. Principal Diagnosis Lumbar spinal stenosis with neurogenic claudication Discharge Data Allergies Allergy/AdvReac Type Severity Reaction Status Date / Time bee venom protein (honey bee) Allergy Hives Verified 02/10/21 09:09 Consultations 02/10/21 13:45 Consult Hospitalist Routine Procedures Performed Operation Date: 01/21/21 09:35 <No data on this case meets the specified criteria> Operation Date: 02/10/21 10:05 Actual Procedures p L3-L5 Decompression, L4-L5 Fusion, Spinal Cord Monitoring(Not Applicable) - Puneet Briggs DO Ordered Studies 02/10/21 11:55 [place] lumbar spine 2-3V Routine Hospital Course (1) Neurogenic claudication due to lumbar spinal stenosis: Patient underwent lumbar decompression and fusion. Tolerated this well. Taken to orthopedic for postoperative. Postop day 1 he was up ambulating leg pain. Progressed postoperative. Extra strength testing. FERNANDO drain decreasing probably. Subsequent discharge home. Discharge orders instructions postoperatively. Total Time Total Time Spent Total Time Spent (In Minutes): 20 minutes Discharge Plan Discharge Items Patient Disposition: Home - Self-Care Reason For Visit: Intervertebral Disc Disorders with Radiculopathy, Discharge Diagnosis: Lumbar spinal stenosis with radiculopathy Activity: As commented below Non-emergency contact: Primary Care Provider Call non-emergency contact if: you have any medication questions Follow-up/Referrals: Sveta Vu PA-C [Primary Care Provider] - Diet: Regular Addtl Attending Provider Instructions: ACTIVITY RECOMMENDATIONS: SELF CARE INSTRUCTIONS AFTER THORACIC/LUMBAR FUSIONS 1. You may walk to your tolerance. It is good exercise for your legs and back. Expect some back and intermittent leg aches and pains. 2. You may perform "counter-top" level activities (make a sandwich, usman with a project, etc.). 3. No bending or lifting of more than 10 pounds or back twisting of any nature (roll like a log when turning in bed). 4. You may ride in a car for 20-30 minutes at a time. No driving until after your first visit with your doctor. 5. Frequent changes of position and restricting sitting to 30 minutes at a time will help limit the amount of back spasms and stiffness you may experience. 6. You may discontinue the use of ambulatory aids (cane, crutches, etc.) once your strength and confidence allow. 7. You may mandarin tutor the shower and let water strike your incision when you arrive home at least once daily. Do not take a tub bath, sit in a hot tub or go into a swimming pool until after your first recheck in the office. SPECIAL CARE INSTRUCTIONS: VERY IMPORTANT TO READ AND REVIEW A. Your surgical incision has been closed with a cosmetic suture under the skin that will dissolve in about 6 weeks. In 14 days, you can use a pair of clean scissors and cut the suture that is left outside of the skin at the ends of your incision. 1. The small skin tapes can be removed 7 days after surgery if they have not fallen off by that point. 2. You may keep the wound open to air as much as possible to promote healing after post-op day number 5 unless told otherwise by your doctor. 3. If you think the wound looks like it is becoming infected (redness or worsening drainage) and/or you are experiencing fever, chill or worsening back pain and muscle spasms, contact the office so that we may evaluate you as soon as possible. B. Complications are uncommon, but please contact us if you have any signs or symptoms of: 1. wound infection (fever higher than 102.5 degrees F, redness, separation of wound, drainage, or increasing pain from the incision) 2. blood clots in legs (pain, swelling, redness and warmth in legs) 3. urinary tract infection (fever higher than 102.5 degrees F, burning upon urination or increased frequency of urination) 4. nerve problems (inability to walk on your toes or heels, numbness, loss of bowel or bladder control) 5. any other symptoms that concern you C. Please call the office at if you have any concerns or questions about your operation or recovery. D. No smoking! Smoking drastically decreases the chance of a solid fusion. E. Do not take any anti-inflammatory medications (Indocin, Advil, Motrin, Aspirin, Naprosyn, etc.) as these may inhibit the chance of a solid fusion. Tylenol is okay to take for pain. MANAGING PAIN AFTER SPINAL SURGERY 1. Narcotic medication is intended for short-term use and will be provided for surgical pain. Surgical pain usually lasts for a period of 4-6 weeks. Narcotic medication includes Percocet, Vicodin, Darvocet, Tylenol #3 or Lortab. 2. Longer-term pain is more appropriately treated with non-narcotic medication such as Tylenol ES. 3. Muscle spasm is not appropriately treated with narcotics. Muscle relaxers such as Soma, Flexeril or Skelaxin can be used along with Tylenol ES. 4. Remember that we all live with some "aches and pains". This is not unusual or uncommon after an injury or as we get older. a. Back pain is expected and may include muscle spasms for 4 to 6 weeks after surgery. The pain should gradually improve. If the pain worsens for no apparent reason, please contact the office. b. Intermittent leg pain may also be experienced and should not be concerned about unless it worsens for no apparent reason. If so, please contact the office. 5. We will provide appropriate medication within the normal guidelines of their prescribed use. We will also be very cautious and aware of potential abuse and extended duration of patients' medication needs. a. Pain medications are for your comfort and to assist with sleep and rest so that the tissue can heal. They are not provided in order to return to normal activity and should not be used through the day. To do so or worsening pain at night can result from ongoing tissue damage and development of tolerance to the prescribed medicine. 6. Please allow 2-3 days to process refills. Prescriptions will not be mailed but must be picked up at the office. FOLLOW UP VISIT: Keep your scheduled follow-up appointment. Any questions, please call the office at . Pending Studies at Discharge: No Stand-Alone Forms: [facility] [employer], Smoking Cessation Medications and DC Order Prescriptions: New oxycodone 5 mg tablet 5 mg PO Q6H PRN (Reason: pain, severe) Qty: 30 RF: 0 tramadol 50 mg tablet 50 mg PO Q6H PRN (Reason: pain, moderate) Qty: 30 RF: 0 Continued multivitamin Tablet 1 tab PO QAM RF: 0 atorvastatin 40 mg Tablet 40 mg PO QAM RF: 0 metformin 500 mg Tablet 500 mg PO BID RF: 0 aspirin 81 mg Tablet,Delayed Release (Dr/Ec) 81 mg PO QAM RF: 0 Discharge Orders: Discharge Order (Routine); Ordered 02/12/21 Ordered By: Puneet Briggs Admission Data Admit Date/Time: 02/10/21 12:32 Attending Provider: Puneet Briggs Admit Provider: Puneet Briggs Primary Care Provider: Sveta Vu Other Providers: Josh Delaney
== END 2021-02-12 13:40 | disposition home or self-care (01) | DRG 455 ==
LOC: ASU 08:25 → 3W 12:32